=== PATIENT | female | born 1940 | race Caucasian/White ===

== ENCOUNTER 2018-04-15 10:47 | Outpatient (CLI) | payer MEDICARE, BC ==
--- NOTE | 2018-04-15 13:52 | MRI ---
CERVICAL SPINE MRI WITHOUT CONTRAST: HISTORY: Right arm pain all the way down to the fingers x3 months. COMPARISON: None. TECHNIQUE: Cervical spine MRI is performed without intravenous Gadolinium administration. Multisequential, mult iplanar imaging is performed. FINDINGS: Heterogeneous marrow signal intensity of the cervical vertebrae. There is evidence of type II modic change at C5-C6 and C6-C7. Intrinsic T1 and T2 hyperintensity involving the T1 vertebral body likely represents an osseous hemangioma. The visualized brain parenchyma, cervicomedullary junction, cervical cord, and upper thoracic cord bautista ve normal size and signal intensity. There is an intrinsic T1 isointense, T2 hyperintense lesion in the neck, at the C7-T1 level, approxim ately 1.9 x 2.1 cm. This lesion appears to slight displace the esophagus. Due to motion and artifac t, it is difficult to discern the location of this lesion, but it may involve the thyroid gland. Bet ter interrogation for anatomic detail and location with a post contrast neck CT is recommended. C2-C3: No significant disk osteophyte complex. No significant central canal stenosis. The neural f oramina are patent. C3-C4: Broad-based disk osteophyte complex abuts the thecal sac. There is deformity of the ventral thecal sac and ventral cord. Moderate central canal stenosis. No T2 hyperintensity of the cord. No significant neural foraminal narrowing. C4-C5: Broad-based disk osteophyte complex abuts the thecal sac. Ventral CSF signal intensity is ef faced, and there is mild deformity of the cord. No T2 hyperintensity of the cord. Mild central mike l stenosis. The neural foramina are parent. There is right facet hypertrophy. C5-C6: Broad-based disk osteophyte complex abuts the thecal sac. There is deformity of the cervical cord. Moderate central canal stenosis. No T2 hyperintensity in the cord. The neural foramina are patent bilaterally. C6-C7: Broad-based disk osteophyte complex abuts the thecal sac. Mild central canal stenosis. Mild right and moderate left foraminal narrowing. C7-T1: No significant central canal stenosis. The neural foramina are patent. IMPRESSION: 1. Degenerative changes of the cervical spine, as described above. 2. Abnormal T1 isointense and T2 hyperintense lesion noted in the neck soft tissues, at the C7-T1 le fartun. Evaluation is limited and incomplete. Post contrast neck CT is recommended. CODE T POS: [facility]
== END 2018-04-15 10:48 | disposition home or self-care (01) ==
LOC: TBSIIMAG 10:47
PROVIDERS: ATTEND Neurological Surgery
DX: M47.12 Other spondylosis with myelopathy, cervical region (principal); G95.9 Disease of spinal cord, unspecified
CPT/HCPCS: 72141

== ENCOUNTER 2018-08-02 11:04 | Outpatient (CLI) | payer MEDICARE, BC | END 2018-08-02 11:05 | disposition home or self-care (01) | LOC: BICMAMMO 11:04 | PROVIDERS: ATTEND Family Medicine Addiction Medicine | DX: Z12.31 Encounter for screening mammogram for malignant neoplasm of breast (principal) | CPT/HCPCS: 77063; 77067 ==

== ENCOUNTER 2018-10-04 09:36 | Emergency (ER) | payer MEDICARE, BC ==
[2018-10-04] MEDS ORDERED: HYDROcodone/Acetaminophen 5/325 mg Tablet ONE (10:59)
== END 2018-10-04 10:55 | disposition home or self-care (01) ==
LOC: ERS 09:36
DX: M25.551 Pain in right hip (principal); E11.9 Type 2 diabetes mellitus without complications; I10 Essential (primary) hypertension
CPT/HCPCS: 99283

== ENCOUNTER 2018-10-15 09:48 | Outpatient (CLI) | payer MEDICARE, BC ==
--- NOTE | 2018-10-15 12:07 | MRI ---
MRI LUMBAR SPINE WITHOUT CONTRAST: Date: 10/15/18 COMPARISON: 12/09/10. HISTORY: Lumbar radiculopathy. Right leg and back pain. TECHNIQUE: Multiplanar, multisequence MR images were obtained of the lumbar spine without contrast. FINDINGS: Generalized disc desiccation is seen. There is a well circumscribed foci of high T2 signal in the T11 and L1 vertebral body which likely represent hemangiomas. End plate degenerative changes are seen th roughout the lumbar spine. The conus medullaris terminates normally at T12. There are foci of high T2 signal in the bilateral ki dneys which represent cysts. The other prevertebral and paraspinal soft tissues are unremarkable. T12-L1: Unremarkable. L1-2: Unremarkable. L2-3: A small disc osteophyte complex is seen. Mild bilateral posterior facet arthrosis. Moderate ce ntral canal stenosis. Moderate bilateral neural foraminal stenosis, left greater than right. L3-4: A small disc osteophyte complex is seen. Moderate bilateral posterior disc arthrosis. Moderate central canal stenosis. Moderate bilateral neural foraminal stenosis. L4-5: A small disc osteophyte complex is seen. Severe bilateral posterior facet arthrosis. Moderate to severe central canal stenosis. Moderate right and mild left neural foraminal stenosis. L5-S1: A small disc osteophyte complex is seen. Mild bilateral posterior facet arthrosis. No central canal stenosis. Moderate right neural foraminal stenosis. Mild left neural foraminal stenosis. IMPRESSION: Degenerative changes of the lumbar spine as above. POS: [facility]
== END 2018-10-15 09:49 | disposition home or self-care (01) ==
LOC: TBSIIMAG 09:48
PROVIDERS: ATTEND Neurological Surgery
DX: M47.26 Other spondylosis with radiculopathy, lumbar region (principal)
CPT/HCPCS: 72148

== ENCOUNTER 2019-08-08 10:42 | Outpatient (CLI) | payer MEDICARE, BC ==
--- NOTE | 2019-08-08 11:47 | MMO ---
Bilateral MAMMO Bilat Screen [facility]. CLINICAL HISTORY: Patient is 79 years old and is seen for screening. The patient has no family history of breast cancer. The patient has no personal history of cancer. The patient has a history of bilateral Cyst Aspiration in several - benign. VIEWS: The views performed were: bilateral craniocaudal with tomosynthesis and bilateral mediolateral oblique with tomosynthesis. FILMS COMPARED: The present examination has been compared to prior imaging studies performed at [facility] on 07/23/2015, 07/28/2016, 07/29/2017 and 08/02/2018. This study has been interpreted with the assistance of computer-aided detection. MAMMOGRAM FINDINGS: The breasts are heterogeneously dense, which could obscure a lesion on mammography. There are stable benign appearing calcifications seen in both breasts. There are also vascular calcifications. There are no suspicious masses, suspicious calcifications, or new areas of architectural distortion. IMPRESSION: THERE IS NO MAMMOGRAPHIC EVIDENCE OF MALIGNANCY. A ROUTINE FOLLOW-UP MAMMOGRAM IN 1 YEAR IS RECOMMENDED. THE RESULTS OF THIS EXAM WERE SENT TO THE PATIENT. ACR BI-RADS Category 2 - Benign finding MAMMOGRAPHY NOTE: 1. A negative mammogram report should not delay a biopsy if a dominant of clinically suspicious mass is present. 2. Approximately 10% to 15% of breast cancers are not detected by mammography. 3. Adenosis and dense breasts may obscure an underlying neoplasm. Reported by: CHELY TOVAR MD Electonically Signed: [id number]
== END 2019-08-08 10:43 | disposition home or self-care (01) ==
LOC: BICMAMMO 10:42
PROVIDERS: ATTEND Family Medicine Addiction Medicine
DX: Z12.31 Encounter for screening mammogram for malignant neoplasm of breast (principal)
CPT/HCPCS: 77063; 77067

== ENCOUNTER 2019-10-13 08:36 | Outpatient (CLI) | payer MEDICARE, BC ==
--- NOTE | 2019-10-13 09:50 | CT ---
CT ABDOMEN AND PELVIS WITH CONTRAST: Date: 10/13/2019 COMPARISON: None. HISTORY: Transverse colon cancer. TECHNIQUE: Multiple contiguous axial images were obtained in a CT of the abdomen and pelvis with contrast. PO co ntrast was administered. Sagittal and coronal reformats were performed. FINDINGS: There are hypodensities in the kidneys measuring up to 2.1 cm in size which represent cysts. The live r, gallbladder, adrenal glands, spleen, and pancreas are unremarkable. No free air, free fluid, or stranding changes are seen in the abdomen or pelvis. There is scattered d iverticula in the sigmoid colon. There is a questionable mass in the transverse colon near the hepati c flexure measuring 2.6 cm in length. The small bowel is normal in caliber. The appendix is not defin itely seen. No abdominal or pelvic lymphadenopathy is seen. Atherosclerotic calcifications are seen in the aorta. Degenerative changes are seen in the spine. The visualized inferior thorax and abdominal wall soft ti ssues are unremarkable. IMPRESSION: 1. Possible transverse colon mass. 2. Bilateral renal cysts. 3. Diverticulosis. POS: [facility]
[2019-10-13] MEDS ORDERED: Iopamidol 370 76% 100 ML VIAL ONE (16:23)
== END 2019-10-13 08:37 | disposition home or self-care (01) ==
LOC: CT 08:36
PROVIDERS: ATTEND Internal Medicine Gastroenterology
DX: K63.89 Other specified diseases of intestine (principal); N28.1 Cyst of kidney, acquired; K57.90 Diverticulosis of intestine, part unspecified, without perforation or abscess without bleeding
CPT/HCPCS: 74177; Q9967

== ENCOUNTER 2019-10-17 07:35 | Outpatient (CLI) | payer MEDICARE, BC ==
--- NOTE | 2019-10-17 09:17 | CT ---
CT chest with IV contrast HISTORY: Mass of the transverse colon. FINDINGS: No comparison available. Mild pleural and parenchymal scarring of the chest most pronounced at the right apex in the lingula. No pleural fluid. A 0.2 cm noncalcified subpleural nodule is present within the anterior segment of the right upper lobe. No aggressive parenchymal masses evident . No enlarged lymph nodes within the mediastinum. There is calcification within the arterial structures. Within the far posterior aspect of the inferior pole right thyroid lobe, a lobular low-density mass p osterior to the trachea is 2.1 cm length by 1.7 cm length by 1.7 cm width. Mild compression of the T7 superior endplate resulting in mild wedging. No significant retropulsion. IMPRESSION: Nonspecific 2 mm subpleural nodule within the right upper lobe. Indeterminate mass, 2.1 cm, within the far posterior aspect of the inferior pole right thyroid lobe. It would not be amenable to percutaneous tissue sampling due to the intrathoracic location and may not be visible on thyroid sonogram. Please consider ENT consultation. Imaging follow-up may require C T exams. Mild T7 superior endplate compression, favored to be chronic. Atherosclerosis.
[2019-10-17] MEDS ORDERED: Iopamidol 370 76% 100 ML VIAL ONE (13:48)
== END 2019-10-17 07:36 | disposition home or self-care (01) ==
LOC: CT 07:35
PROVIDERS: ATTEND Internal Medicine Hematology & Oncology
DX: C18.4 Malignant neoplasm of transverse colon (principal); R91.1 Solitary pulmonary nodule; E07.89 Other specified disorders of thyroid; I70.90 Unspecified atherosclerosis; G95.20 Unspecified cord compression
CPT/HCPCS: 71260; Q9967

== ENCOUNTER 2019-10-21 07:06 | Outpatient (CLI) | payer MEDICARE, BC ==
--- NOTE | 2019-10-21 08:44 | ULT ---
THYROID ULTRASOUND: HISTORY: Mass noted on recent chest CT. COMPARISON: None. FINDINGS: Thyroid isthmus measures 0.17 cm. Right thyroid lobe measures 5.5 x 2.8 x 1.9 cm. Left ovary measures 3.9 x 1.6 x 1.5. Thyroid nodules: Right thyroid lobe: 2.0 x 2.0 x 1.6 cm mixed nodule in the lower pole of the right thyroid lobe is no leila. There is a heterogeneous, predominantly solid nodule in the midpole of the right thyroid lobe measuring 1.8 x 1.3 x 2.5 cm. There is a predominantly solid nodule with a small cystic component and associated calcification in the upper pole of the right thyroid lobe measuring 1.6 x 1.5 x 1.56. Left thyroid lobe: There are subcentimeter complex and solid nodule in the left thyroid lobe with a m aximum dimension of 0.7 cm. IMPRESSION: 1. Multinodular thyroid gland.. 2. TIRADS level TR 4 moderately suspicious. Fine-needle aspiration of the largest solid nodule in th e midpole of the right thyroid lobe. Transcribed Date/Time: 10/21/2019 8:57 AM
== END 2019-10-21 07:07 | disposition home or self-care (01) ==
LOC: ULT 07:06
PROVIDERS: ATTEND Internal Medicine Hematology & Oncology
DX: E07.89 Other specified disorders of thyroid (principal); E04.2 Nontoxic multinodular goiter
CPT/HCPCS: 71046; 76536; 80048; 83036; 85025; 93005

== ENCOUNTER 2019-10-21 07:07 | Outpatient (CLI) | payer MEDICARE, BC ==
--- NOTE | 2019-10-21 08:33 | RAD ---
EXAM: Two views chest PROVIDED CLINICAL HISTORY: Preoperative evaluation. Diagnosed with colon cancer. COMPARISON: CT thorax on 10/17/2019. FINDINGS: Cardiac silhouette and pulmonary vasculature are within normal limits. There is linear density seen within the region of the lingula which is unchanged compared to the CT exam and may be related to scarring versus atelectasis. The lungs otherwise appear clear. A wedge-shaped compression fracture of the T7 vertebral body is seen and was also seen on recent CT thorax. Vascular calcifications are seen in the thoracic aorta. IMPRESSION: 1. Linear density in the lingula which may be related to atelectasis versus scarring. 2. Compression fracture of indeterminate age involving the T7 vertebral body..
[2019-10-21 08:43] LABS: #Eosinphils 0.1 thou/uL (0.0-0.7); #Lymphocytes 1.1 thou/uL (1.20-3.40); #Monocytes 0.4 thou/uL (0.11-0.59); #Neutrophils 2.9 thou/uL (1.40-6.50); %Basophils 0.3 % (0.0-1.0); %Eosinophils 2.6 % (0.0-10.0); %Lymphocytes 24.2 % (21.0-51.0); %Monocytes 8.4 % (0.0-10.0); %Neutrophils 64.5 % (42.0-75.0); Hemoglobin 12.3 g/dL (12.0-16.0); Mean Corpuscular HGB CONC 33.6 g/dL (32.0-36.0); Mean Corpuscular Hemoglobin 28.2 pg (27.0-31.0); Mean Platelet Volume 9.8 fL (7.4-10.4); Platelet Count 179 thou/uL (130-400); RBC Distribution Width 12.8 % (11.5-14.5); Red Blood Cell (RBC) Count 4.37 mill/uL (4.20-5.40); White Blood Cell (WBC) Count 4.5 thou/uL (4.8-10.8)
[2019-10-21 08:57] LABS: Hemoglobin A1c 7.2 % (4.0-6.0)
[2019-10-21 09:10] LABS: Anion Gap 11 mmol/L (10-20); BUN (Urea Nitrogen) 21 mg/dL (9.8-20.1); Calc. Creatinine Clearance 0 mL/min (70-130); Calcium 10.2 mg/dL (7.8-10.44); Carbon Dioxide 29 mmol/L (23-31); Chloride 105 mmol/L (98-107); Estimated GFR-MDRD 63; Glucose 121 mg/dL (83-110); Potassium 3.9 mmol/L (3.5-5.1); Sodium 141 mmol/L (136-145)
== END 2019-10-21 07:08 | disposition home or self-care (01) ==
LOC: LABBT 07:07
PROVIDERS: ATTEND Specialist
DX: Z01.818 Encounter for other preprocedural examination (principal); C18.4 Malignant neoplasm of transverse colon
CPT/HCPCS: 71046; 80048; 83036; 85025; 93005; 93010

== ENCOUNTER 2019-10-21 12:00 | Inpatient (IN) | payer MEDICARE, BC ==
[2019-10-25] MEDS ORDERED: Rocuronium Bromide 10 MG/ML (10ML VIAL) ONE (10:16)
[2019-10-25] MEDS ORDERED: Bupivacaine HCl 0.5%/Epinephrine 1:200,000/PF 30 ml Vial ONE (10:16)
[2019-10-25] MEDS ORDERED: Lidocaine 1% PF 5 ML VIAL ONE (10:16)
[2019-10-25] MEDS ORDERED: Esmolol 100 MG/10 ML VIAL ONE (10:16)
[2019-10-25] MEDS ORDERED: Dexamethasone 20 MG/5 ML VIAL ONE (10:16)
[2019-10-25] MEDS ORDERED: EPHEDRINE 25 MG/5 ML SYRINGE ONE (10:16)
[2019-10-25] MEDS ORDERED: Glycopyrrolate 0.2 MG/ML 5 ML SYRINGE ONE (10:16)
[2019-10-25] MEDS ORDERED: PROPOFOL 200 MG/20 ML VIAL ONE (10:16)
[2019-10-25] MEDS ORDERED: Ondansetron PF 4 MG/2 ML Vial ONE (10:16)
[2019-10-25] MEDS ORDERED: ceFOXitin 2 GM/50 ML Duplex BAG ONE (11:47)
[2019-10-25] MEDS ORDERED: Ketorolac Tromethamine 30 MG/ML VIAL ONE ×2 (11:47→18:16)
[2019-10-25] MEDS ORDERED: Acetaminophen 500 MG TAB ONE (12:05)
[2019-10-25] MEDS ORDERED: Fentanyl 100 MCG/2 ML VIAL ONE ×2 (12:17→14:28)
[2019-10-25] MEDS ORDERED: Midazolam HCl 2 mg/2 ml Vial ONE (12:17)
[2019-10-25] MEDS ORDERED: Lidocaine 1% w/Epinephrine 1:100K 20 ML VIAL ONE (14:27)
[2019-10-25] MEDS ORDERED: Bupivacaine 0.25% HCL 30 ML VIAL ONE (14:27)
[2019-10-25] MEDS ORDERED: Promethazine HCl 25 MG/ML VIAL SLOW IVP PRN ×2 (15:34→17:17)
[2019-10-25] MEDS ORDERED: HYDROmorphone 2 MG/ML VIAL SLOW IVP PRN (15:34)
[2019-10-25] MEDS ORDERED: Ondansetron HCl/PF 4 MG/2 ML Vial IVP PRN ×2 (15:34→17:17)
[2019-10-25] MEDS ORDERED: Promethazine HCl 25 MG/ML VIAL IM PRN ×2 (17:06→17:17)
[2019-10-25] MEDS ORDERED: Ondansetron PF 4 MG/2 ML Vial IVP PRN (17:06)
[2019-10-25] MEDS ORDERED: Morphine 2 MG/ML SYRINGE SLOW IVP PRN (17:06)
[2019-10-25] MEDS ORDERED: hydrALAZINE 20 MG/ML VIAL SLOW IVP PRN (17:06)
[2019-10-25 20:20] VITALS: BMI 33.8
[2019-10-25] MEDS ORDERED: Latanoprost 0.005% Ophth Soln 2.5 ml Bottle EA EYE SCH (21:00)
[2019-10-25] MEDS: Ketorolac Tromethamine 30 MG/ML VIAL IVP SCH ×2 (21:34→23:19)
[2019-10-25] MEDS: Famotidine 20 MG TAB PO SCH (21:59)
[2019-10-25] MEDS: Metoprolol Tartrate 100 MG TAB PO SCH (21:59)
[2019-10-25] MEDS: Simvastatin 5 MG TAB PO SCH (21:59)
[2019-10-25] MEDS: Enoxaparin Sodium 40 MG/0.4 ML SYRINGE SC SCH (21:59)
[2019-10-25] MEDS: Famotidine/PF 20 mg/2ml Vial SLOW IVP SCH (22:03)
[2019-10-25] MEDS: Potassium Chloride 20 MEQ in Lactated Ringer's 1,000 ML IV SCH (22:06)
[2019-10-25] MEDS: TRAVATAN 0.004% EA EYE SCH (22:07)
[2019-10-25] MEDS: VICTOZA 18 MG/3 ML SC SCH (22:08)
[2019-10-25] MEDS: Melatonin 3 MG TAB PO PRN (23:21)
[2019-10-25] MEDS: Acetaminophen 500 MG TAB PO PRN (23:21)
[2019-10-26 05:19] LABS: #Lymphocytes 0.7 thou/uL (1.20-3.40); #Monocytes 0.4 thou/uL (0.11-0.59); #Neutrophils 9.2 thou/uL (1.40-6.50); %Basophils 0.3 % (0.0-1.0); %Eosinophils 0.1 % (0.0-10.0); %Lymphocytes 6.6 % (21.0-51.0); %Monocytes 3.4 % (0.0-10.0); %Neutrophils 89.6 % (42.0-75.0); Hemoglobin 11.4 g/dL (12.0-16.0); Mean Corpuscular Hemoglobin 28.8 pg (27.0-31.0); Mean Corpuscular Volume 84.6 fL (78.0-98.0); Mean Platelet Volume 9.6 fL (7.4-10.4); Platelet Count 154 thou/uL (130-400); RBC Distribution Width 12.7 % (11.5-14.5); Red Blood Cell (RBC) Count 3.96 mill/uL (4.20-5.40); White Blood Cell (WBC) Count 10.3 thou/uL (4.8-10.8)
[2019-10-26] MEDS: Acetaminophen 500 MG TAB PO PRN (05:22)
[2019-10-26] MEDS: Ketorolac Tromethamine 30 MG/ML VIAL IVP SCH ×4 (05:22→23:17)
[2019-10-26 05:36] LABS: Anion Gap 11 mmol/L (10-20); BUN (Urea Nitrogen) 16 mg/dL (9.8-20.1); Calc. Creatinine Clearance 87 mL/min (70-130); Calcium 9.5 mg/dL (7.8-10.44); Carbon Dioxide 25 mmol/L (23-31); Chloride 104 mmol/L (98-107); Estimated GFR-MDRD 69; Glucose 201 mg/dL (83-110); Potassium 3.5 mmol/L (3.5-5.1); Sodium 136 mmol/L (136-145)
--- NOTE | 2019-10-26 05:42 | OP ---
DATE OF PROCEDURE: 10/25/2019 PREOPERATIVE DIAGNOSIS: Malignancy of the proximal transverse colon. POSTOPERATIVE DIAGNOSIS: Malignancy of the proximal transverse colon. PROCEDURE PERFORMED: Laparoscopic hand-assisted right hemicolectomy. ANESTHESIA: General endotracheal. INDICATIONS FOR PROCEDURE: The patient is a 79-year-old white female. Recent colonoscopy reveals a malignancy in the proximal transverse colon. She was taken to the operating room at this time for laparoscopic resection. DESCRIPTION OF PROCEDURE: Mechanical and antibiotic bowel prep was performed as an outpatient. She was taken to the operating room, where general endotracheal anesthesia was obtained with the patient in supine position. Abdomen was prepped with ChloraPrep and draped in sterile fashion. Local anesthetic was infiltrated and 5 mm left upper abdominal incision was created, through which a Veress needle was passed into the peritoneal cavity and pneumoperitoneum was established using carbon dioxide up to pressure of 15 mmHg. A 5 mm trocar port site was passed through the same incision and laparoscopic camera was passed through this port. Under direct vision, a second 5 mm port was placed in the left lower quadrant. Attention was then turned to the right side of the abdomen. There were some omental adhesions inferiorly and these were quickly lysed with a LigaSure device. The omentum was then reflected superiorly. This clearly demonstrated the tattooed area in the proximal transverse colon. Attention was then turned to the small bowel. This was adherent in the retroperitoneum on the right side of the abdomen. This was carefully mobilized using the LigaSure device in order to obtain a full small-bowel mobility. The right colon was then mobilized by incising the white line of Toldt up to the hepatic flexure. This gave enough mobility that I was able to grasp the cecum and reflect this superiorly and inferiorly. This allowed identification of the ileocolic pedicle. Inferior to the ileocolic pedicle, the mesentery was incised and a retroperitoneal dissection was carried laterally to the abdominal wall. I then turned my attention to the ileocolic vessels which were dissected circumferentially and divided serially using the LigaSure device. Meticulous hemostasis was maintained. Dissection was then carried superiorly through the mesentery up to the transverse colon. A segment of transverse colon was identified close to 10 cm distal to the malignancy and this was selected as the transection location. The omentum was divided at this level up to the level of the colon. The omentum was dissected off the transverse colon extending distally in order to gain colonic mobility. The hepatic flexure was fully mobilized and the right colon was further mobilized. At this juncture, I was able to withdraw the entire right colon, distal small bowel, and transverse colon through the extraction site that was created in the right upper abdomen. An Que wound retractor was in place prior to removal through this area. The small bowel was positioned adjacent to the transverse colon and a double-stapled anastomosis was created using the CHARMAINE 75 stapler. The resected segment was then passed off the field. All instruments as well as gloves that were used while the bowel was opened were passed off the field and gloves were changed. The anastomosis was buttressed with multiple interrupted sutures of 3-0 silk and the anastomosis was dropped back down to the abdomen. Laparoscopy was reinstituted and the abdomen was explored and found to be entirely hemostatic. There have been essentially no blood loss at any point during the operation. The anastomosis was widely patent and viable. The two ports were removed under direct vision. A GraNee needle was used to close the fascia at the lower incision as there was a little bleeding at this site. All laparoscopic instrumentation was passed off the field and the abdomen was cleansed with saline. Gowns and gloves were changed and the closing tray was used to close the abdomen. The fascia was closed in layers with running suture of #1 PDS. The wound was copiously irrigated with 2 L of saline. The remainder of the wound was closed in layers with 3-0 and 4-0 Monocryl. The port sites were closed with 4-0 Monocryl and Dermabond was placed externally to all incisions. There were no complications. The patient tolerated the procedure well and was taken to the recovery room in stable condition. Job ID: [id number]
[2019-10-26] MEDS: Morphine 4 MG/ML VIAL SLOW IVP PRN ×2 (05:51→08:33)
[2019-10-26] MEDS: Metoprolol Tartrate 100 MG TAB PO SCH ×2 (08:32→20:52)
[2019-10-26] MEDS: Losartan 25 MG TAB PO SCH ×3 (08:32→21:01)
[2019-10-26] MEDS: Famotidine 20 MG TAB PO SCH ×2 (08:33→20:52)
[2019-10-26] MEDS: Famotidine/PF 20 mg/2ml Vial SLOW IVP SCH ×2 (12:55→20:52)
[2019-10-26] MEDS ORDERED: Acetaminophen 325 MG TAB PO PRN (14:49)
[2019-10-26] MEDS ORDERED: HYDROcodone/Acetaminophen 7.5/325 mg Tablet PO PRN ×2 (14:49)
[2019-10-26] MEDS: Potassium Chloride 20 MEQ in Lactated Ringer's 1,000 ML IV SCH ×4 (18:05→20:53)
[2019-10-26] MEDS ORDERED: Dextrose 50% Abboject 50 ML SYRINGE SLOW IVP PRN (18:16)
[2019-10-26] MEDS ORDERED: Insulin Regular 300 UNITS/3 ML VIAL SC PRN (18:16)
[2019-10-26] MEDS ORDERED: Dextrose 5% in Water 1,000 ML IV PRN (18:16)
[2019-10-26] MEDS: TRAVATAN 0.004% EA EYE SCH (20:51)
[2019-10-26] MEDS: VICTOZA 18 MG/3 ML SC SCH (20:51)
[2019-10-26] MEDS: Simvastatin 5 MG TAB PO SCH (20:52)
[2019-10-26] MEDS: Enoxaparin Sodium 40 MG/0.4 ML SYRINGE SC SCH (20:52)
[2019-10-26] MEDS ORDERED: Prevnar 13-Val Conj/PF 0.5 ML SYRINGE IM ONE (21:00)
[2019-10-26] MEDS: Melatonin 3 MG TAB PO PRN (23:16)
[2019-10-27] MEDS: Potassium Chloride 20 MEQ in Lactated Ringer's 1,000 ML IV SCH (05:31)
[2019-10-27] MEDS: Ketorolac Tromethamine 30 MG/ML VIAL IVP SCH (05:31)
--- NOTE | 2019-10-27 07:07 | PDOC.GSPN ---
Surgery Progress Note: Subj - Subjective Narrative: Ms. Hawkins is a 79y/o female POD #1 from a laparoscopic hand-assisted right hemicolectomy for malignancy of the proximal transverse colon. She has some mild abdominal pain located at the lower half of her abdomen, rated at a 3/10 without radiation that worsens only with movement. She has not noticed any drainage or bleeding form her wound sites. She has had 3 soft/watery bowel movements without blood or mucus. She is tolerating her full liquids diet well and she only had a self limited episode of mild nausea yesterday without vomiting. She no longer has a palm catether in place and is urinating without issues. She is on IVF of LR with 20 MEq of KCl at a rate of 50 ml/hr. She ambulated once yesterday and has been using incentive spirometery. She feels ready to go home. Denies fever, chills, chest pain or sob. Surgery Progress Note: Obj - Vital signs Vital signs: Vital Signs - Most Recent Temp Pulse Resp BP Pulse Ox 97.9 F 75 18 138/69 95 10/27/19 03:04 10/27/19 03:04 10/27/19 03:04 10/27/19 03:04 10/27/19 03:04 - Physical Exam General: no distress, other (Wearing nasal pillows for sleep apnea device) ENT: no congestion, normal mucosa Neck: other (No palpable masses appreciated. Supple, no lymphadenopathy.) Cardiovascular: regular rate and rhythm, no murmur Respiratory: clear to auscultation (Erythema around large incision site on RUQ without evidence of drainage. Mild erythema at other incision sites.) Abdomen: soft, nondistended, positive bowel sounds, appropriately tender Surgery Progress Note: Results - Labs Result Diagrams: 10/26/19 04:59 10/26/19 04:59 Lab results: Laboratory Results - last 24 hr 10/26/19 10/27/19 20:52 05:38 POC Glucose 155 H 132 H Surgery Progress Note: A/P - Plan Plan: Ms. Hawkins is a 79y/o female POD #1 from a laparoscopic hand-assisted right hemicolectomy for malignancy of the proximal transverse colon and is recovering well today. She has a history of HTN, but her BP has been controlled for the most part with home meds. Other vitals including HR are wnl, which is reassuring. The erythema around her incision sites will likely heal with time and are not concerning. She has already had 3 BMs, her bowel sounds are normoactive and is tolerating her diet well. No labs were drawn today, but yesterday her WBC was 10.3 and Hbg was 11.4. Plan is to continue home medications, VTE + gastric ulcer prophylaxis, ACHS checks and moderate sliding scale insulin for her DM. She can be advanced to regular diet and have her IVF discontinued today. Potentially can be discharged today as well. Will discuss with Dr. Fuller.
[2019-10-27 08:03] VITALS: TEMP 98.2
[2019-10-27] MEDS: Famotidine/PF 20 mg/2ml Vial SLOW IVP SCH (09:11)
[2019-10-27] MEDS: Metoprolol Tartrate 100 MG TAB PO SCH (09:12)
[2019-10-27] MEDS: Famotidine 20 MG TAB PO SCH (09:13)
[2019-10-27] MEDS: Losartan 25 MG TAB PO SCH (09:13)
[2019-10-27 10:15] VITALS: BP 131/75
--- NOTE | 2019-10-27 22:22 | DIS ---
DATE OF ADMISSION: 10/25/2019 DATE OF DISCHARGE: 10/27/2019 ADMISSION DIAGNOSIS: Proximal transverse colon cancer. DISCHARGE DIAGNOSIS: Proximal transverse colon cancer. PROCEDURES PERFORMED: Laparoscopic hand assisted extended right hemicolectomy. SURGEON: Jose Maria Fuller MD ADMISSION HISTORY: Patient is a 79-year-old white female. She recently underwent colonoscopy and evaluation of anemia. This revealed a large intraluminal malignancy at the proximal transverse colon which was tattooed. She is taken to the operating room at this time for excision of this area. HOSPITAL COURSE: Patient underwent outpatient antibiotic and mechanical bowel prep. She presented to the operating room on the day of her admission. She underwent an uneventful laparoscopic right hemicolectomy. The malignancy was well tattooed. Upon removal, it was easily palpable as well. There was no evidence of intraabdominal metastatic disease. She had an uneventful hospital course. She tolerated clear liquids on the day of surgery and postoperative day #1. She was advanced to a full liquid diet on postoperative day #2. She already had a bowel movement prior to discharge. She remained entirely hemodynamically stable with essentially normal laboratory results. She had negligible discomfort and had taken no narcotic medication on postoperative day #2. She is discharged home at this time. Instructions to follow up with myself in 2 weeks. She is given no medications. She tells me she requires no pain medication. She is instructed to resume her preoperative home medication. She is given dietary and activity instructions. Job ID: [id number]
== END 2019-10-27 10:40 | disposition home or self-care (01) | DRG 331 ==
LOC: SURG A 10-25 10:54 → SURG B 10-25 19:52
PROVIDERS: ADMIT Specialist; ATTEND Specialist
PROC: 0DTF4ZZ Resection of Right Large Intestine, Percutaneous Endoscopic Approach (ICD-10-PCS; principal; 2019-10-25)
DX: C18.4 Malignant neoplasm of transverse colon (principal); I10 Essential (primary) hypertension; E78.5 Hyperlipidemia, unspecified; K76.0 Fatty (change of) liver, not elsewhere classified; M19.90 Unspecified osteoarthritis, unspecified site; E66.9 Obesity, unspecified; E11.9 Type 2 diabetes mellitus without complications; H40.9 Unspecified glaucoma; K44.9 Diaphragmatic hernia without obstruction or gangrene; R32 Unspecified urinary incontinence; F32.9 Major depressive disorder, single episode, unspecified; Z91.040 Latex allergy status; Z90.710 Acquired absence of both cervix and uterus; Z72.89 Other problems related to lifestyle; Z68.33 Body mass index [BMI] 33.0-33.9, adult
CPT/HCPCS: 36415; 36416; 80048; 85025; 88309; J0670; J0694; J1100; J1650; J1885; J2001; J2250; J2270; J2405; J2704; J3010; J3480; J7120; S0020

== ENCOUNTER 2020-07-05 14:45 | Outpatient (CLI) | payer MEDICARE, BC ==
[~2020-07-05 14:45] MED LIST: Iopamidol-370 76% 500 ML 1 ML ONE
--- NOTE | 2020-07-05 16:05 | CT ---
CT angiogram of the abdomen with and without contrast: 07/05/2020 HISTORY: Hypertension, evaluate for renal artery stenosis TECHNIQUE: Axial CT imaging at 3 mm intervals obtained of the abdomen with and without IV contrast us ing CT angiogram protocol. Coronal and sagittal 3-D reformatted imaging obtained. 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 Mild increased linear density noted within the lingula suggest scar and/or volume loss. A small sliding-type hiatal hernia is present. The liver, spleen, pancreas, and gallbladder appear grossly unremarkable. There is stable nodularity/thickening of the adrenal glands, left greater than right, similar when co mpared to a prior CT of the abdomen and pelvis performed 10/13/2019. There are numerous low-density lesions within both kidneys, majority of which are too small to charac terize. No suspicious renal lesions are apparent. The right kidney measures 7.4 cm in craniocaudal dimension and the left kidney measures 7.9 cm in aircraft maintenance engineer niocaudal dimension. The celiac axis is patent with a mild degree of stenosis at its origin on the basis of atheroscleroti c calcification. The superior mesenteric artery is patent as is the inferior mesenteric artery. Scattered atherosclerotic calcifications are seen involving the imaged arterial structures of the pel vis and involving the abdominal aorta, most prominent in the infrarenal region. There is mild atherosclerotic calcification at the origin of the left renal artery there is no hemody namically significant stenosis involving the left renal artery. There is atherosclerotic calcification at the origin of the right renal artery with no hemodynamicall y significant stenosis noted. Review of the osseous structures demonstrates prominent multilevel lower lumbar spine degenerative ch masha with multilevel facet hypertrophy, disc space narrowing, and anterior osteophyte formation. Benign T12 hemangioma. No worrisome lytic or blastic bone lesions. IMPRESSION: No CT angiographic evidence for hemodynamically significant renal artery stenosis. Multip le incidental findings as detailed above.
== END 2020-07-05 14:46 | disposition home or self-care (01) ==
LOC: BICCT 14:45
PROVIDERS: ATTEND Internal Medicine Cardiovascular Disease
DX: I12.9 Hypertensive chronic kidney disease with stage 1 through stage 4 chronic kidney disease, or unspecified chronic kidney disease (principal); N18.9 Chronic kidney disease, unspecified; M47.816 Spondylosis without myelopathy or radiculopathy, lumbar region; M48.061 Spinal stenosis, lumbar region without neurogenic claudication; I70.0 Atherosclerosis of aorta
CPT/HCPCS: 36415; 74175; 80053; 82043; 83036; Q9967

== ENCOUNTER 2020-08-16 08:58 | Outpatient (CLI) | payer BC, MEDICARE ==
--- NOTE | 2020-08-16 09:37 | MMO ---
Bilateral MAMMO Bilat Screen [facility]. CLINICAL HISTORY: Patient is 80 years old and is seen for screening. The patient has no family history of breast cancer. The patient has no personal history of cancer. The patient has a history of bilateral Cyst Aspiration in several - benign. VIEWS: The views performed were: bilateral craniocaudal with tomosynthesis and bilateral mediolateral oblique with tomosynthesis. FILMS COMPARED: The present examination has been compared to prior imaging studies performed at [facility] on 07/28/2016, 07/29/2017, 08/02/2018 and 08/08/2019. This study has been interpreted with the assistance of computer-aided detection. MAMMOGRAM FINDINGS: The breasts are heterogeneously dense, which could obscure a lesion on mammography. There are stable benign appearing calcifications seen in both breasts. There are also vascular calcifications. There are no suspicious masses, suspicious calcifications, or new areas of architectural distortion. IMPRESSION: THERE IS NO MAMMOGRAPHIC EVIDENCE OF MALIGNANCY. A ROUTINE FOLLOW-UP MAMMOGRAM IN 1 YEAR IS RECOMMENDED. THE RESULTS OF THIS EXAM WERE SENT TO THE PATIENT. ACR BI-RADS Category 2 - Benign finding MAMMOGRAPHY NOTE: 1. A negative mammogram report should not delay a biopsy if a dominant of clinically suspicious mass is present. 2. Approximately 10% to 15% of breast cancers are not detected by mammography. 3. Adenosis and dense breasts may obscure an underlying neoplasm. Reported by: CHELY TOVAR MD Electonically Signed: [id number]
== END 2020-08-16 08:59 | disposition home or self-care (01) ==
LOC: BICMAMMO 08:58
PROVIDERS: ATTEND Family Medicine Addiction Medicine
DX: Z12.31 Encounter for screening mammogram for malignant neoplasm of breast (principal)
CPT/HCPCS: 77063; 77067

== ENCOUNTER 2021-08-19 10:38 | Outpatient (CLI) | payer MEDICARE, BC | END 2021-08-19 10:39 | disposition home or self-care (01) | LOC: BICMAMMO 10:38 | PROVIDERS: ATTEND Family Medicine Addiction Medicine | DX: Z12.31 Encounter for screening mammogram for malignant neoplasm of breast (principal) | CPT/HCPCS: 77063; 77067 ==

== ENCOUNTER 2022-11-12 12:43 | Outpatient (CLI) | payer MEDICARE, BC | END 2022-11-12 12:44 | disposition home or self-care (01) | LOC: BICMAMMO 12:43 | PROVIDERS: ATTEND Family Medicine Addiction Medicine | DX: Z12.31 Encounter for screening mammogram for malignant neoplasm of breast (principal); R92.1 Mammographic calcification found on diagnostic imaging of breast; Z85.038 Personal history of other malignant neoplasm of large intestine; Z91.89 Other specified personal risk factors, not elsewhere classified | CPT/HCPCS: 77063; 77067 ==

== ENCOUNTER 2023-11-25 10:45 | Outpatient (CLI) | payer MEDICARE, BC | END 2023-11-25 10:46 | disposition home or self-care (01) | LOC: BICMAMMO 10:45 | PROVIDERS: ATTEND Internal Medicine Rheumatology | DX: M81.0 Age-related osteoporosis without current pathological fracture (principal) | CPT/HCPCS: 77080 ==

== ENCOUNTER 2025-07-05 11:15 | Outpatient (CLI) | payer MEDICARE, BC | END 2025-07-05 11:16 | disposition home or self-care (01) | LOC: BICMAMMO 11:15 | PROVIDERS: ATTEND Internal Medicine Rheumatology | DX: M81.0 Age-related osteoporosis without current pathological fracture (principal) | CPT/HCPCS: 77080 ==